=== PATIENT | male | born 1965 | race Caucasian/White ===

== ENCOUNTER 2018-09-25 22:45 | Emergency (ER) | payer BC ==
--- NOTE | 2018-09-25 23:03 | EDM.PDOC ---
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 He is known T2DM, thought maybe his sugar was low, did not check it, instead drank his protein shake. 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 Pain in headache is mild 3/10 dull ache, started gradual, not thunderclap like pain, associated with no neurological deficits. - Related Data Allergies Allergy/AdvReac Type Severity Reaction Status Date / Time amoxicillin trihydrate Allergy Stomach Verified 09/25/18 23:23 [From Augmentin] Upset potassium clavulanate Allergy Stomach Verified 09/25/18 23:23 [From Augmentin] Upset Home Meds: Home Meds Albuterol [Ventolin HFA] 2 puff INH Q4H PRN 01/21/15 [History] Aspirin [Halfprin] 81 mg PO BRK 01/21/15 [History] Multivitamin [Multivitamins] 1 each PO DAILY 01/21/15 [History] Tadalafil [Cialis] 5 mg PO DAILY PRN 01/21/15 [History] amLODIPine [Norvasc] 5 mg PO DAILY 01/21/15 [History] Diclofenac Sodium [Voltaren] 75 mg PO BIDMEALS 02/21/18 [History] Flaxseed Oil [Flaxseed] 1,000 mg PO DAILY 02/21/18 [History] Flecainide Acetate 100 mg PO BID 02/21/18 [History] Fluticasone Propionate [Flovent HFA 110 MCG] 1 puff INH DAILY 02/21/18 [History] [place]-3S/DHA/Epa/Fish Oil [[place]-3 Fish Oil 1,000 mg Sfgl] 1,000 mg PO DAILY 12/31 [History] atorvaSTATin [Lipitor] 40 mg PO DAILY 02/21/18 [History] metFORMIN [Glucophage] 500 mg PO BIDMEALS 02/21/18 [History] miSOPROStol [Cytotec] 100 mcg PO BID 02/21/18 [History] Past Medical History Cardiovascular History: Reports: Angina, High Cholesterol, Hypertension Respiratory History: Reports: Asthma, Sleep Apnea Gastrointestinal History: Reports: None - Infectious Disease History Infectious Disease History: Reports: Chicken Pox, Influenza - Past Surgical History Other Male Surgeries/Procedures: vasectomy Social & Family History - Family History Cardiac: Reports: Angina, High Cholesterol, Hypertension Respiratory: Reports: Asthma GI: Reports: None ED ROS GENERAL - Review of Systems Review Of Systems: See Below Constitutional: Reports: No Symptoms HEENT: Reports: No Symptoms Respiratory: Reports: No Symptoms Cardiovascular: Reports: No Symptoms Endocrine: Reports: No Symptoms GI/Abdominal: Reports: No Symptoms : Reports: No Symptoms Musculoskeletal: Reports: No Symptoms Skin: Reports: No Symptoms Neurological: Reports: Dizziness, Difficulty Walking Psychiatric: Reports: No Symptoms Hematologic/Lymphatic: Reports: No Symptoms ED EXAM, GENERAL - Physical Exam Exam: See Below Exam Limited By: No Limitations General Appearance: Alert, WD/WN, No Apparent Distress Ears: Normal External Exam, Normal Canal, Hearing Grossly Normal, Normal TMs Ear Exam: Bilateral Ear: TM normal Nose: Normal Inspection, Normal Mucosa, No Blood Throat/Mouth: Normal Inspection, Normal Lips, Normal Teeth, Normal Oropharynx, No Airway Compromise Head: Atraumatic, Normocephalic Neck: Normal Inspection, Supple, Non-Tender, Full Range of Motion Respiratory/Chest: No Respiratory Distress, Lungs Clear, Normal Breath Sounds, No Accessory Muscle Use Cardiovascular: Normal Peripheral Pulses, Regular Rate, Rhythm GI/Abdominal: Normal Bowel Sounds, Soft, Other (obese abdomen) Back Exam: Normal Inspection, Full Range of Motion Extremities: Normal Inspection, Normal Range of Motion, Non-Tender, Normal Capillary Refill, Pedal Edema Neurological: Alert, Oriented, CN II-XII Intact, Normal Cognition, Normal Reflexes, No Motor/Sensory Deficits, Abnormal Gait, Other (when he moves his head around, he becomes symptomatic and dizzy.) Skin Exam: Warm, Dry, Intact, Normal Color, Other (at times his face feels flushed, comes and goes.) EKG INTERPRETATION EKG Date: 09/25/18 Rhythm: NSR Rate (Beats/Min): 68 [place]: Normal P-Wave: Present QRS: Normal ST-T: Normal QT: Normal Comparison: NA - No Prior EKG Course - Vital Signs Text/Narrative:: patient presents with peripheral like cause of vertigo, symptoms resolve rapidly at rest, worse with movement, no inner ear dysfunction, recent hearing test yesterday actually, vague mild h/a, new to him frontal region, no neuro deficits, horizontal nystagmus . meclizine given. 1 hr after med given, pt ambulated in halls, gait unsteady, worse with movement , resolves at rest, patient states his dad had a stroke and his symptoms had came on similar as this. Due to the continual h/a, gait disturbance, patient is just unsure of himself, CT scan of head w/o obtained, results came back normal. Patient still having symptoms, only with movement, they resolve when he holds his head still. 2.5 mg Valium ordered IVP slow and diluted to help what it seems to be BPPV. He drank two glasses of water. He has a ride home per son and is off work until Saturday to rest. Valium was repeated, patient improved, he is able to move his head in a certain way to alleviate his symptoms completely, it is always with movement, he has horizontal nystagmus, his symptoms resolve at rest, he is to f/u in clinic today or on saturday. He has the weekend off to rest. Last Recorded V/S: Last Vital Signs Temp 98.7 F 09/25/18 22:50 Pulse 58 L 09/26/18 03:25 Resp 18 09/26/18 03:25 BP 172/78 H 09/26/18 03:25 Pulse Ox 92 L 09/25/18 22:50 Orthostatic Blood Pressure [ 161/85 Standing] Orthostatic Blood Pressure [ 158/76 Sitting] Orthostatic Blood Pressure [ 155/75 Supine] - Orders/Labs/Meds Orders: Active Orders 24 hr Category Date Time Status EKG Documentation Completion [RC] ASDIRECTED Care 09/26/18 00:00 Active POC Glucose [Blood Glucose Check, Bedside] [RC] ONETIME Care 09/26/18 00:00 Active Head wo Cont [CT] Stat Exams 09/26/18 01:09 Taken EKG 12 Lead [EK] Routine Ther 09/26/18 00:00 Ordered Labs: Laboratory Tests 09/25/18 09/25/18 Range/Units 23:10 23:10 WBC 6.51 (5.00-10.00) 10^3/uL RBC 5.17 (4.50-6.00) 10^6/uL Hgb 15.3 (13.0-17.0) g/dL Hct 44.2 (40.0-52.0) % MCV 85.5 (82.0-92.0) fL MCH 29.6 (27.0-31.0) pg MCHC 34.6 (32.0-36.0) g/dL RDW 12.8 (11.5-14.5) % Plt Count 216 (150-400) 10^3/uL MPV 11.8 H (7.4-10.4) fL Immature Gran % (Auto) 0.3 (0.0-5.0) % Neut % (Auto) 68.6 (50.0-70.0) % Lymph % (Auto) 22.1 (20.0-40.0) % [place] % (Auto) 6.8 (2.0-8.0) % Eos % (Auto) 1.7 (1.0-3.0) % Baso % (Auto) 0.5 (0.0-1.0) % Immature Gran # (Auto) 0.02 (0.00-0.50) 10^3/uL Neut # (Auto) 4.47 (2.50-7.00) 10^3/uL Lymph # (Auto) 1.44 (1.00-4.00) 10^3/uL [place] # (Auto) 0.44 (0.10-0.80) 10^3/uL Eos # (Auto) 0.11 (0.10-0.30) 10^3/uL Baso # (Auto) 0.03 (0.00-0.10) 10^3/uL Sodium 144 (136-145) mmol/L Potassium 3.8 (3.3-5.3) mmol/L Chloride 106 (98-115) mmol/L Carbon Dioxide 27.8 (21.0-32.0) mmol/L Anion Gap 14.0 (5-15) mmol/L BUN 20 (6-25) mg/dL Creatinine 0.76 (0.51-1.17) mg/dL Est Cr Clr Drug Dosing 102.68 mL/min Estimated GFR (MDRD) > 60 mL/min Glucose 94 (75 - 99) mg/dL Calcium 8.7 (8.7-10.3) mg/dL Meds: Medications Discontinued Medications Generic Name Dose Route Start Last Admin Trade Name Savita PRN Reason Stop Dose Admin Diazepam Confirm 09/26/18 02:38 09/26/18 03:23 Valium Administered 09/26/18 02:39 Not Given Dose 10 mg .ROUTE .STK-MED ONE Diazepam 2.5 mg 09/26/18 02:45 09/26/18 03:30 Valium IVPUSH 09/26/18 02:46 2.5 mg ONETIME ONE Administration Meclizine HCl 25 mg 09/26/18 00:08 09/26/18 00:10 Antivert PO 09/26/18 00:09 25 mg ONETIME ONE Administration Meclizine HCl Confirm 09/26/18 00:10 09/26/18 00:43 Antivert Administered 09/26/18 00:11 Not Given Dose 25 mg .ROUTE .STK-MED ONE Departure - Departure Time of Disposition: 04:56 Disposition: Home, Self-Care 01 Condition: Good Clinical Impression: Benign paroxysmal positional vertigo Instructions: How to Perform the Jeni Maneuver, Benign Positional Vertigo Forms: ED Department Discharge, ED Summary Discharge Additional Instructions: f/u in [place] [facility] today or saturday. OTC Meclizine 25 mg PO three times a day as needed for symptoms. look up the [place] Half [place] maneuver, it may help your symptoms. - My Orders Last 24 Hours: My Active Orders 09/26/18 00:00 EKG Documentation Completion [RC] ASDIRECTED POC Glucose [Blood Glucose Check, Bedside] [RC] ONETIME EKG 12 Lead [EK] Routine 09/26/18 01:09 Head wo Cont [CT] Stat - Assessment/Plan Last 24 Hours: My Active Orders 09/26/18 00:00 EKG Documentation Completion [RC] ASDIRECTED POC Glucose [Blood Glucose Check, Bedside] [RC] ONETIME EKG 12 Lead [EK] Routine 09/26/18 01:09 Head wo Cont [CT] Stat
[2018-09-26] MEDS ORDERED: Meclizine 25 MG Tab PO ONE (00:08)
[2018-09-26] MEDS ORDERED: Meclizine 25 MG Tab ONE ×2 (00:10→05:49)
[2018-09-26 00:18] LABS: CHLORIDE,CL 106 mmol/L (98-115); SODIUM,NA 144 mmol/L (136-145)
[2018-09-26 03:33] VITALS: BP 172/78
--- NOTE | 2018-09-26 08:17 | CT ---
[id number] CT/CT Head WO IV EXAM: CT Head WO IV CLINICAL DATA: HEADACHE. DISEQUILIBRIUM COMPARISON: CORRELATION IS MADE WITH THE EXAM OF 2012. FINDINGS: There is no mass or mass effect. There is no hemorrhage or hydrocephalus. There are no extra-axial fluid collections. There are no sites of abnormal attenuation. IMPRESSION: NO PLAIN CT EVIDENCE OF ACUTE INTRACRANIAL PROCESS. New Perez MD 09/26/18 0816 Thank you for allowing us to participate in the care of your patient.
== END 2018-09-26 06:00 | disposition home or self-care (01) ==
LOC: KA.ED 22:45
DX: H81.10 Benign paroxysmal vertigo, unspecified ear (principal); I10 Essential (primary) hypertension; E11.9 Type 2 diabetes mellitus without complications; J45.909 Unspecified asthma, uncomplicated; Z79.84 Long term (current) use of oral hypoglycemic drugs; Z88.1 Allergy status to other antibiotic agents; Z79.82 Long term (current) use of aspirin
CPT/HCPCS: 36415; 70450; 80048; 82962; 85025; 93005; 96374; 99285; A9270; J3360

== ENCOUNTER 2018-12-04 05:48 | Emergency (ER) | payer BC ==
--- NOTE | 2018-12-04 06:21 | EDM.PDOC ---
ED HPI GENERAL MEDICAL PROBLEM - General Chief Complaint: General Stated Complaint: Hypertension Time Seen by Provider: 12/04/18 06:00 Source of Information: Reports: Patient History Limitations: Reports: No Limitations - History of Present Illness INITIAL COMMENTS - FREE TEXT/NARRATIVE: 53 YO WM presents to ER complaining of elevated blood pressure which began tonight at work. Pt reports a mild frontal headache which began today which prompted him to take his BP. Pt reports since 09/2018 he has been having more trouble with controlling his blood pressure. He was recently started on Losartan by his PCP but states BP hasn't been below 150's systolically since he began on his new medication. Pt denies any chest pain, no shortness of breath, no nausea/vomiting, no dizziness and no diaphoresis. Pt reports BP as high as 180/110 at work tonight. Pt reports feeling better with minimal headache at this time with BP readings of 160/78. Onset: Today Duration: Chronic Location: Reports: Head. Denies: Chest Quality: Reports: Ache Severity: Mild Improves with: Reports: None Worsens with: Reports: None Associated Symptoms: Reports: Headaches. Denies: Confusion, Chest Pain, Cough, Diaphoresis, Fever/Chills, Nausea/Vomiting, Shortness of Breath, Syncope, Weakness Headache Pain Score (Numeric/FACES): 5 - Related Data Allergies Allergy/AdvReac Type Severity Reaction Status Date / Time amoxicillin trihydrate Allergy Stomach Verified 12/04/18 05:58 [From Augmentin] Upset potassium clavulanate Allergy Stomach Verified 12/04/18 05:58 [From Augmentin] Upset Home Meds: Home Meds Albuterol [Ventolin HFA] 2 puff INH Q4H PRN 01/21/15 [History] Aspirin [Halfprin] 81 mg PO BRK 01/21/15 [History] Multivitamin [Multivitamins] 1 each PO DAILY 01/21/15 [History] Tadalafil [Cialis] 5 mg PO DAILY PRN 01/21/15 [History] amLODIPine [Norvasc] 5 mg PO DAILY 01/21/15 [History] Diclofenac Sodium [Voltaren] 75 mg PO BIDMEALS 02/21/18 [History] Flaxseed Oil [Flaxseed] 1,000 mg PO DAILY 02/21/18 [History] Flecainide Acetate 100 mg PO BID 02/21/18 [History] Fluticasone Propionate [Flovent HFA 110 MCG] 1 puff INH DAILY 02/21/18 [History] [place]-3S/DHA/Epa/Fish Oil [[place]-3 Fish Oil 1,000 mg Sfgl] 1,000 mg PO DAILY 12/31 [History] atorvaSTATin [Lipitor] 40 mg PO DAILY 02/21/18 [History] metFORMIN [Glucophage] 500 mg PO BIDMEALS 02/21/18 [History] miSOPROStol [Cytotec] 100 mcg PO BID 02/21/18 [History] Past Medical History HEENT History: Reports: Other (See Below) Other HEENT History: Chronic tinnitis Cardiovascular History: Reports: Angina, High Cholesterol, Hypertension Respiratory History: Reports: Asthma, Sleep Apnea Gastrointestinal History: Reports: None Neurological History: Reports: Neuropathy, Diabetic, Other (See Below) Other Neuro History: [place]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 Endocrine/Metabolic History: Reports: Diabetes, Type II, Obesity/BMI 30+ - Infectious Disease History Infectious Disease History: Reports: Chicken Pox, Influenza - Past Surgical History Other Male Surgeries/Procedures: vasectomy Social & Family History - Family History Cardiac: Reports: Angina, High Cholesterol, Hypertension Respiratory: Reports: Asthma GI: Reports: None ED ROS GENERAL - Review of Systems Review Of Systems: See Below Constitutional: Reports: No Symptoms HEENT: Reports: No Symptoms Respiratory: Reports: No Symptoms Cardiovascular: Reports: No Symptoms Endocrine: Reports: No Symptoms GI/Abdominal: Reports: No Symptoms : Reports: No Symptoms Musculoskeletal: Reports: No Symptoms Skin: Reports: No Symptoms Neurological: Reports: Headache. Denies: Confusion, Dizziness, Numbness, Paresthesia, Pre-Existing Deficit, Seizure, Syncope, Tingling, Tremors, Trouble Speaking, Difficulty Walking, Weakness, Change in Speech, Gait Disturbance Psychiatric: Reports: No Symptoms Hematologic/Lymphatic: Reports: No Symptoms Immunologic: Reports: No Symptoms ED EXAM, GENERAL - Physical Exam Exam: See Below Exam Limited By: No Limitations General Appearance: Alert, WD/WN, No Apparent Distress Eye Exam: Bilateral Eye: EOMI, PERRL Head: Atraumatic, Normocephalic Neck: Normal Inspection, Supple, Non-Tender, Full Range of Motion Respiratory/Chest: No Respiratory Distress, Lungs Clear, Normal Breath Sounds, No Accessory Muscle Use, Chest Non-Tender Cardiovascular: Normal Peripheral Pulses, Regular Rate, Rhythm, No Edema, No Gallop, No JVD, No Murmur, No Rub GI/Abdominal: Normal Bowel Sounds, Soft, Non-Tender, No Organomegaly, No Distention, No Abnormal Bruit, No Mass Back Exam: Normal Inspection, Full Range of Motion, NT Extremities: Normal Inspection, Normal Range of Motion, Non-Tender, Normal Capillary Refill, No Pedal Edema Neurological: Alert, Oriented, CN II-XII Intact, Normal Cognition, Normal Gait, Normal Reflexes, No Motor/Sensory Deficits Psychiatric: Normal Affect, Normal Mood Skin Exam: Warm, Dry, Intact, Normal Color, No Rash Lymphatic: No Adenopathy EKG INTERPRETATION EKG Date: 12/04/18 Time: 05:57 Rhythm: NSR Rate (Beats/Min): 67 [place]: Normal P-Wave: Present QRS: Normal ST-T: Normal QT: Normal Comparison: No Change (09/25/2018) Course - Vital Signs Last Recorded V/S: Last Vital Signs Temp 36.1 C 12/04/18 06:04 Pulse 74 12/04/18 06:04 Resp 20 12/04/18 06:04 BP 162/84 H 12/04/18 06:08 Pulse Ox 95 12/04/18 06:04 - Orders/Labs/Meds Orders: Active Orders 24 hr Category Date Time Status EKG Documentation Completion [RC] ASDIRECTED Care 12/04/18 06:10 Active Acetaminophen [Tylenol Extra Strength] Med 12/04/18 06:34 Once 1,000 mg PO ONETIME ONE EKG 12 Lead [EK] Routine Ther 12/04/18 05:55 Ordered Medication Orders Acetaminophen (Tylenol Extra Strength) 1,000 mg PO ONETIME ONE Stop: 12/04/18 06:35 Meds: Medications Generic Name Dose Route Start Last Admin Trade Name Freq PRN Reason Stop Dose Admin Acetaminophen 1,000 mg 12/04/18 06:34 Tylenol Extra Strength PO 12/04/18 06:35 ONETIME ONE Departure - Departure Time of Disposition: 06:33 Disposition: Home, Self-Care 01 Condition: Good Clinical Impression: Hypertension screening - Discharge Information Instructions: Hypertension, [id number] Referrals: Margarita Dumont PA-C [Primary Care Provider] - Forms: ED Department Discharge Additional Instructions: 1. discharge home 2. increase Norvasc to 10mg everyday 3. continue current home medications 4. follow up with Margarita Dumont PA-C today for further management and treatment 5. return to ER for worsening symptoms - My Orders Last 24 Hours: My Active Orders 12/04/18 05:55 EKG 12 Lead [EK] Routine 12/04/18 06:10 EKG Documentation Completion [RC] ASDIRECTED 12/04/18 06:34 Acetaminophen [Tylenol Extra Strength] 1,000 mg PO ONETIME ONE - Assessment/Plan Last 24 Hours: My Active Orders 12/04/18 05:55 EKG 12 Lead [EK] Routine 12/04/18 06:10 EKG Documentation Completion [RC] ASDIRECTED 12/04/18 06:34 Acetaminophen [Tylenol Extra Strength] 1,000 mg PO ONETIME ONE Assessment:: 1. uncontrolled hypertension- recommended increasing norvasc to 10mg PO QD and follow up with PCP today for further management 2. mild frontal headache- pt doesn't want anything for pain at this time. Plan: 1. discharge home 2. increase Norvasc to 10mg everyday 3. continue current home medications 4. follow up with Margarita Dumont PA-C today for further management and treatment 5. return to ER for worsening symptoms
[2018-12-04 06:27] VITALS: BP 162/86
[2018-12-04] MEDS ORDERED: Acetaminophen 500 MG Tab PO ONE (06:34)
== END 2018-12-04 06:45 | disposition home or self-care (01) ==
LOC: KA.ED 05:48
DX: I10 Essential (primary) hypertension (principal); E11.40 Type 2 diabetes mellitus with diabetic neuropathy, unspecified; J45.909 Unspecified asthma, uncomplicated; E78.00 Pure hypercholesterolemia, unspecified; E66.9 Obesity, unspecified; Z68.42 Body mass index [BMI] 45.0-49.9, adult; Z88.0 Allergy status to penicillin; Z79.82 Long term (current) use of aspirin; Z79.899 Other long term (current) drug therapy; Z79.84 Long term (current) use of oral hypoglycemic drugs
CPT/HCPCS: 93005; 99283; A9270

== ENCOUNTER 2018-12-04 23:08 | Observation (INO) | payer BC ==
[2018-12-04] MEDS ORDERED: Sodium Chloride 0.9% 10 ML Syringe FLUSH PRN (23:35)
[2018-12-04] MEDS ORDERED: Sodium Chloride 0.9% 1,000 ML IV ONE (23:36)
--- NOTE | 2018-12-04 23:46 | EDM.PDOC ---
ED HPI GENERAL MEDICAL PROBLEM - General Chief Complaint: Neuro Symptoms/Deficits Stated Complaint: High blood pressure, left arm and jaw numbness Time Seen by Provider: 12/04/18 23:10 Source of Information: Reports: Patient History Limitations: Reports: No Limitations - History of Present Illness INITIAL COMMENTS - FREE TEXT/NARRATIVE: 53 YO WM with uncontrolled hypertension presents to ER with near syncope with chest heaviness, left arm numbness and facial numbness which began tonight around 9pm. Pt has been having headaches with elevated blood pressure for the past few days and was seen in clinic today for antihypertensive medication adjustment. Pt was started on HCTZ 12.5mg in addition to his norvasc 5mg and losartan 50mg daily. 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 Pt denies headache at this time. Pt denies chest pain or arm numbness at this time. Duration: Day(s): (3) Location: Reports: Head, Face, Chest, Upper Extremity, Left Quality: Reports: Pressure Severity: Mild Improves with: Reports: None Worsens with: Reports: None Associated Symptoms: Reports: Chest Pain, Diaphoresis. Denies: Confusion, Cough , Loss of Appetite, Malaise, Nausea/Vomiting, Rash, Seizure, Shortness of Breath , Syncope, Weakness - Related Data Allergies Allergy/AdvReac Type Severity Reaction Status Date / Time amoxicillin trihydrate Allergy Stomach Verified 12/05/18 00:12 [From Augmentin] Upset potassium clavulanate Allergy Stomach Verified 12/05/18 00:12 [From Augmentin] Upset Home Meds: Home Meds Albuterol [Ventolin HFA] 2 puff INH Q4H PRN 01/21/15 [History] Aspirin [Halfprin] 81 mg PO BRK 01/21/15 [History] Multivitamin [Multivitamins] 1 each PO DAILY 01/21/15 [History] Tadalafil [Cialis] 5 mg PO DAILY PRN 01/21/15 [History] amLODIPine [Norvasc] 5 mg PO DAILY 01/21/15 [History] Diclofenac Sodium [Voltaren] 75 mg PO BIDMEALS 02/21/18 [History] Flaxseed Oil [Flaxseed] 1,000 mg PO DAILY 02/21/18 [History] Flecainide Acetate 100 mg PO BID 02/21/18 [History] Fluticasone Propionate [Flovent HFA 110 MCG] 1 puff INH DAILY 02/21/18 [History] [place]-3S/DHA/Epa/Fish Oil [[place]-3 Fish Oil 1,000 mg Sfgl] 1,000 mg PO DAILY 12/31 [History] atorvaSTATin [Lipitor] 40 mg PO DAILY 02/21/18 [History] metFORMIN [Glucophage] 500 mg PO BIDMEALS 02/21/18 [History] miSOPROStol [Cytotec] 100 mcg PO BID 02/21/18 [History] hydroCHLOROthiazide [Hydrochlorothiazide] 12.5 mg PO DAILY 12/05/18 [History] Past Medical History HEENT History: Reports: Other (See Below) Other HEENT History: Chronic tinnitis Cardiovascular History: Reports: Angina, High Cholesterol, Hypertension Respiratory History: Reports: Asthma, Sleep Apnea Gastrointestinal History: Reports: None Genitourinary History: Reports: None Musculoskeletal History: Reports: Back Pain, Chronic Neurological History: Reports: Neuropathy, Diabetic, Other (See Below) Other Neuro History: [place]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 Psychiatric History: Reports: None Endocrine/Metabolic History: Reports: Diabetes, Type II, Obesity/BMI 30+ Hematologic History: Reports: None Immunologic History: Reports: None Oncologic (Cancer) History: Reports: None Dermatologic History: Reports: None - Infectious Disease History Infectious Disease History: Reports: Chicken Pox, Influenza - Past Surgical History Other Male Surgeries/Procedures: vasectomy Social & Family History - Family History Family Medical History: Noncontributory Cardiac: Reports: Angina, High Cholesterol, Hypertension Respiratory: Reports: Asthma GI: Reports: None - Caffeine Use Caffeine Use: Reports: Coffee ED ROS GENERAL - Review of Systems Review Of Systems: See Below Constitutional: Reports: No Symptoms HEENT: Reports: No Symptoms Respiratory: Reports: No Symptoms Cardiovascular: Reports: No Symptoms Endocrine: Reports: No Symptoms GI/Abdominal: Reports: No Symptoms : Reports: No Symptoms Musculoskeletal: Reports: No Symptoms Skin: Reports: No Symptoms Neurological: Reports: No Symptoms, Dizziness, Numbness, Tingling. Denies: Confusion, Headache, Paresthesia, Trouble Speaking, Difficulty Walking, Weakness , Change in Speech, Gait Disturbance Psychiatric: Reports: No Symptoms Hematologic/Lymphatic: Reports: No Symptoms Immunologic: Reports: No Symptoms ED EXAM, GENERAL - Physical Exam Exam: See Below Exam Limited By: No Limitations General Appearance: Alert, WD/WN, No Apparent Distress Eye Exam: Bilateral Eye: EOMI, PERRL Nose: Normal Inspection, Normal Mucosa, No Blood Throat/Mouth: Normal Inspection, Normal Lips, Normal Teeth, Normal Gums, Normal Oropharynx, Normal Voice, No Airway Compromise Head: Atraumatic, Normocephalic Neck: Normal Inspection, Supple, Non-Tender, Full Range of Motion Respiratory/Chest: No Respiratory Distress, Lungs Clear, Normal Breath Sounds, No Accessory Muscle Use, Chest Non-Tender Cardiovascular: Normal Peripheral Pulses, Regular Rate, Rhythm, No Edema, No Gallop, No JVD, No Murmur, No Rub GI/Abdominal: Normal Bowel Sounds, Soft, Non-Tender, No Organomegaly, No Distention, No Abnormal Bruit, No Mass Back Exam: Normal Inspection, Full Range of Motion, NT Extremities: Normal Inspection, Normal Range of Motion, Non-Tender, Normal Capillary Refill, No Pedal Edema Neurological: Alert, Oriented, CN II-XII Intact, Normal Cognition, Normal Gait, Normal Reflexes, No Motor/Sensory Deficits Psychiatric: Normal Affect, Normal Mood Skin Exam: Warm, Dry, Intact, Normal Color, No Rash Lymphatic: No Adenopathy EKG INTERPRETATION EKG Date: 12/05/18 Time: 02:41 Rhythm: NSR Rate (Beats/Min): 62 [place]: Normal P-Wave: Present QRS: Normal ST-T: Normal QT: Normal Comparison: No Change (12/04/2018) Course - Vital Signs Last Recorded V/S: Last Vital Signs Temp 37.1 C 12/04/18 23:10 Pulse 78 12/04/18 23:10 Resp 18 12/04/18 23:10 BP 151/75 H 12/04/18 23:10 Pulse Ox 95 12/04/18 23:10 - Orders/Labs/Meds Orders: Active Orders 24 hr Category Date Time Status EKG Documentation Completion [RC] ASDIRECTED Care 12/04/18 23:36 Active Peripheral IV Care [RC] . DIRECTED Care 12/04/18 23:36 Active Chest 2V [CR] Stat Exams 12/04/18 23:35 Taken Head wo Cont [CT] Stat Exams 12/04/18 23:35 Taken Sodium Chloride 0.9% [Saline Flush] Med 12/04/18 23:35 Active 10 ml FLUSH Q8HR PRN Peripheral IV Insertion Adult [OM.PC] Routine Oth 12/04/18 23:35 Ordered EKG 12 Lead [EK] Routine Ther 12/04/18 23:35 Ordered Medication Orders Sodium Chloride (Saline Flush) 10 ml FLUSH Q8HR PRN PRN Reason: keep vein open Labs: Laboratory Tests 12/04/18 12/04/18 Range/Units 23:40 23:40 WBC 8.19 (5.00-10.00) 10^3/uL RBC 4.87 (4.50-6.00) 10^6/uL Hgb 14.5 (13.0-17.0) g/dL Hct 41.1 (40.0-52.0) % MCV 84.4 (82.0-92.0) fL MCH 29.8 (27.0-31.0) pg MCHC 35.3 (32.0-36.0) g/dL RDW 12.8 (11.5-14.5) % Plt Count 224 (150-400) 10^3/uL MPV 11.3 H (7.4-10.4) fL Immature Gran % (Auto) 0.1 (0.0-5.0) % Neut % (Auto) 76.2 H (50.0-70.0) % Lymph % (Auto) 15.4 L (20.0-40.0) % [place] % (Auto) 6.6 (2.0-8.0) % Eos % (Auto) 1.2 (1.0-3.0) % Baso % (Auto) 0.5 (0.0-1.0) % Immature Gran # (Auto) 0.01 (0.00-0.50) 10^3/uL Neut # (Auto) 6.24 (2.50-7.00) 10^3/uL Lymph # (Auto) 1.26 (1.00-4.00) 10^3/uL [place] # (Auto) 0.54 (0.10-0.80) 10^3/uL Eos # (Auto) 0.10 (0.10-0.30) 10^3/uL Baso # (Auto) 0.04 (0.00-0.10) 10^3/uL Sodium 144 (136-145) mmol/L Potassium 3.2 L (3.3-5.3) mmol/L Chloride 103 (98-115) mmol/L Carbon Dioxide 31.9 (21.0-32.0) mmol/L Anion Gap 12.3 (5-15) mmol/L BUN 17 (6-25) mg/dL Creatinine 0.74 (0.51-1.17) mg/dL Est Cr Clr Drug Dosing 105.45 mL/min Estimated GFR (MDRD) > 60 mL/min Glucose 123 H (75 - 99) mg/dL Calcium 8.7 (8.7-10.3) mg/dL Total Bilirubin 0.4 (0.2-1.0) mg/dL AST 25 (15-37) U/L ALT 54 (12-78) U/L Alkaline Phosphatase 93 (46-116) IU/L Creatine Kinase 164 (26-276) U/L CK-MB (CK-2) 1.00 (0.00-4.30) ng/mL Troponin I < 0.04 (0.00-0.070) ng/mL Total Protein 7.3 (6.4-8.2) g/dL Albumin 3.79 (3.00-4.80) g/dL Meds: Medications Generic Name Dose Route Start Last Admin Trade Name Freq PRN Reason Stop Dose Admin Sodium Chloride 10 ml 12/04/18 23:35 Saline Flush FLUSH Q8HR PRN keep vein open Discontinued Medications Generic Name Dose Route Start Last Admin Trade Name Freq PRN Reason Stop Dose Admin Aspirin 243 mg 12/05/18 00:36 Aspirin PO 12/05/18 00:37 ONETIME ONE Sodium Chloride 1,000 mls @ 999 mls/hr 12/04/18 23:36 12/05/18 00:08 Normal Saline IV 12/05/18 00:36 999 mls/hr .BOLUS ONE Administration - Radiology Interpretation Free Text/Narrative:: CXR- NAD CT Head- NAD Departure - Departure Time of Disposition: 00:51 Disposition: Refer to Observation Condition: Fair Clinical Impression: Anginal equivalent, Labile hypertension - Discharge Information Forms: ED Department Discharge - My Orders Last 24 Hours: My Active Orders 12/04/18 23:35 Chest 2V [CR] Stat Head wo Cont [CT] Stat Sodium Chloride 0.9% [Saline Flush] 10 ml FLUSH Q8HR PRN Peripheral IV Insertion Adult [OM.PC] Routine EKG 12 Lead [EK] Routine 12/04/18 23:36 EKG Documentation Completion [RC] ASDIRECTED Peripheral IV Care [RC] . DIRECTED - Assessment/Plan Last 24 Hours: My Active Orders 12/04/18 23:35 Chest 2V [CR] Stat Head wo Cont [CT] Stat Sodium Chloride 0.9% [Saline Flush] 10 ml FLUSH Q8HR PRN Peripheral IV Insertion Adult [OM.PC] Routine EKG 12 Lead [EK] Routine 12/04/18 23:36 EKG Documentation Completion [RC] ASDIRECTED Peripheral IV Care [RC] . DIRECTED Assessment:: 1. labile hypertension 2. anginal equivalent Plan: 1. admit to medicine- Fern Erlandson- OBS 2. monitor 3. trop I Q6 x 3 4. supportive care
[2018-12-05] MEDS ORDERED: Aspirin 81 MG Tab.Chew PO ONE (00:36)
[2018-12-05 00:46] LABS: ANION GAP 12.3 mmol/L (5-15); CHLORIDE,CL 103 mmol/L (98-115); SODIUM,NA 144 mmol/L (136-145)
[2018-12-05] MEDS ORDERED: Acetaminophen 500 MG Tab PO PRN (06:03)
[2018-12-05 06:39] VITALS: BP 147/83
--- NOTE | 2018-12-05 07:40 | CT ---
[id number] CT/CT Head WO IV EXAM: CT Head WO IV CLINICAL DATA: NEAR SYNCOPE COMPARISON: CORRELATION IS MADE WITH THE EXAM OF SEPTEMBER 26, 2018. FINDINGS: There is no mass or mass effect. There is no hemorrhage or hydrocephalus. There are no extra-axial fluid collections. There are no sites of abnormal attenuation. IMPRESSION: NO PLAIN CT EVIDENCE OF ACUTE INTRACRANIAL PROCESS. New Perez MD 12/05/18 0738 Thank you for allowing us to participate in the care of your patient.
--- NOTE | 2018-12-05 08:39 | CR ---
[id number] RAD/RAD Chest PA And Lateral EXAM: RAD Chest PA And Lateral INDICATION: NEAR SYNCOPE COMPARISON: January 2015. DISCUSSION: Cardiomediastinal silhouette is normal in size and contour. No infiltrate, effusion, pneumothorax, or edema. IMPRESSION: Negative examination of the chest. Deonte Mckay MD 12/05/18 0838 Thank you for allowing us to participate in the care of your patient.
--- NOTE | 2018-12-11 09:39 | PCM.HP.2 ---
H&P History of Present Illness - General Date of Service: 12/05/18 Admit Problem/Dx: Admission Diagnosis/Problem Admission Diagnosis/Problem Anginal equivalent Source of Information: Patient, Family, Old Records, RN History Limitations: Reports: No Limitations Headache Pain Score (Numeric/FACES): 6 - Related Data Allergies/Adverse Reactions: Allergies Allergy/AdvReac Type Severity Reaction Status Date / Time amoxicillin trihydrate Allergy Stomach Verified 12/05/18 00:12 [From Augmentin] Upset potassium clavulanate Allergy Stomach Verified 12/05/18 00:12 [From Augmentin] Upset Home Medications: Home Meds Albuterol [Ventolin HFA] 2 puff INH Q4H PRN 01/21/15 [History] Aspirin [Halfprin] 81 mg PO BRK 01/21/15 [History] Multivitamin [Multivitamins] 1 each PO DAILY 01/21/15 [History] Tadalafil [Cialis] 5 mg PO DAILY PRN 01/21/15 [History] Diclofenac Sodium [Voltaren] 75 mg PO BIDMEALS 02/21/18 [History] Flaxseed Oil [Flaxseed] 1,000 mg PO DAILY 02/21/18 [History] Flecainide Acetate 100 mg PO BID 02/21/18 [History] Fluticasone Propionate [Flovent HFA 110 MCG] 1 puff INH DAILY 02/21/18 [History] [place]-3S/DHA/Epa/Fish Oil [[place]-3 Fish Oil 1,000 mg Sfgl] 1,000 mg PO DAILY 12/31 [History] atorvaSTATin [Lipitor] 40 mg PO DAILY 02/21/18 [History] metFORMIN [Glucophage] 500 mg PO BIDMEALS 02/21/18 [History] miSOPROStol [Cytotec] 100 mcg PO BID 02/21/18 [History] hydroCHLOROthiazide [Hydrochlorothiazide] 25 mg PO DAILY #60 tab 12/05/18 [Rx] Past Medical History HEENT History: Reports: Other (See Below) Other HEENT History: Chronic tinnitis Cardiovascular History: Reports: Angina, High Cholesterol, Hypertension Other Cardiovascular History: hx of PVC's, takes Flecainide Respiratory History: Reports: Asthma, Sleep Apnea Gastrointestinal History: Reports: None Genitourinary History: Reports: None Musculoskeletal History: Reports: Back Pain, Chronic Neurological History: Reports: Neuropathy, Diabetic, Other (See Below) Other Neuro History: [place]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 Psychiatric History: Reports: None Endocrine/Metabolic History: Reports: Diabetes, Type II, Obesity/BMI 30+ Hematologic History: Reports: None Immunologic History: Reports: None Oncologic (Cancer) History: Reports: None Dermatologic History: Reports: None - Infectious Disease History Infectious Disease History: Reports: Chicken Pox, Influenza - Past Surgical History Head Surgeries/Procedures: Reports: None Other Male Surgeries/Procedures: vasectomy Social & Family History - Family History Family Medical History: Noncontributory Cardiac: Reports: Angina, High Cholesterol, Hypertension Respiratory: Reports: Asthma GI: Reports: None - Tobacco Use Smoking Status *Q: Former Smoker Used Tobacco, but Quit: Yes Month/Year Tobacco Last Used: 03/1995 - Caffeine Use Caffeine Use: Reports: Coffee H&P Review of Systems - Review of Systems: Review Of Systems: See Below General: Reports: No Symptoms HEENT: Reports: Headaches Pulmonary: Reports: No Symptoms Cardiovascular: Reports: No Symptoms Gastrointestinal: Reports: No Symptoms Genitourinary: Reports: No Symptoms Musculoskeletal: Reports: No Symptoms Skin: Reports: No Symptoms Psychiatric: Reports: No Symptoms Neurological: Reports: No Symptoms Hematologic/Lymphatic: Reports: No Symptoms Immunologic: Reports: No Symptoms Exam - Exam Exam: See Below - Vital Signs Vital Signs: Last Vital Signs Temp 98.5 F 12/05/18 06:38 Pulse 59 L 12/05/18 06:38 Resp 18 12/05/18 06:38 BP 147/83 H 12/05/18 06:38 Pulse Ox 95 12/05/18 07:00 Weight: 292 lb - Exam Quality Assessment: No: Supplemental Oxygen General: Alert, Oriented. No: Mild Distress HEENT: Mucosa Moist & [place] Neck: Supple, Trachea Midline, 2 Lungs: Clear to Auscultation, Normal Respiratory Effort Cardiovascular: Regular Rate, Regular Rhythm GI/Abdominal Exam: Normal Bowel Sounds, Soft, Non-Tender, No Organomegaly, No Distention (Male) Exam: Deferred Rectal (Males) Exam: Deferred Back Exam: No: CVA Tenderness (L), CVA Tenderness (R) Extremities: No Pedal Edema Peripheral Pulses: 2+: Radial (L), Radial (R) Skin: Warm, Dry, Intact Neurological: Cranial Nerves Intact, Reflexes Equal Bilateral Neuro Extensive - Mental Status: Alert, Oriented x3, Normal Mood/Affect, Normal Cognition Neuro Extensive - Motor, Sensory, Reflexes: CN II-XII Intact, Normal Gait, Normal Reflexes Psychiatric: Alert, Normal Affect, Normal Mood - Patient Data Result Diagrams: 12/04/18 23:40 12/04/18 23:40 Problem List Initiated/Reviewed/Updated: Yes Assessment/Plan Comment:: Please use this H&P as a combined discharge summary History of present illness Mr. Higginbotham is a 53 YO GENTLEMAN WHO WAS ADMITTED DUE TO TO CHEST PAIN AND RULE OUT MO. He presented to the ER due to near syncope so along with some chest heaviness which radiated to his face and left arm. He admitted having headaches long with elevated BP the past few days and he had been evaluated in the [facility] that day with blood pressure medication adjustments in which she was started on hydrochlorothiazide 12.5 mg by mouth daily--amlodipine was discontinued. 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 In the ED he had no headache and no longer had chest pains however he was admitted for ongoing serial cardio biomarkers monitoring. Hospital course/findings Uneventful, no concerns on telemetry. EKG, NSR, head CT that was negative and CXR, negative. Labs were unremarkable other than a K level of 3.2. He had no chest pains or shortness of breath. He did have a headache on the morning of discharge. Primary hospital problems Rule out MO, this has been ruled out Hypokalemia, mild Obesity, morbid, comorbid Prediabetes Medication changes/adjustments upon discharge Increase hydrochlorothiazide to 25 mg by mouth daily Discontinue amlodipine Disposition Patient will be discharged to the hospital, lifestyle modifications including improving blood pressure, weight loss, less stress. Likely will need cardiac stress status as patient does have confounding comorbidities/risks with likely underlying insiduis cardiac disease. Follow-up and be worked up as outpatient. Repeat potassium level as outpatient - Mortality Measure Prognosis:: Good
--- NOTE | 2018-12-11 09:46 | PCM.DCSUM1 ---
Discharge Summary - Hospital Course Diagnosis: Stroke: No - Discharge Data Discharge Date: 12/05/18 Discharge Disposition: Home, Self-Care 01 Condition: Good - Patient Instructions Diet: Heart Healthy Diet, Low Sodium, Diabetic Diet Activity: No Strenuous Activities Driving: May Drive Today Showering/Bathing: May Shower Notify Provider of: Fever, Increased Pain Other/Special Instructions: report any worsening headache. Monitor home blood pressure if able - Discharge Plan *PRESCRIPTION DRUG MONITORING PROGRAM REVIEWED*: Not Applicable *COPY OF PRESCRIPTION DRUG MONITORING REPORT IN PATIENT DANIEL: Not Applicable Home Medications: Home Meds Albuterol [Ventolin HFA] 2 puff INH Q4H PRN 01/21/15 [History] Aspirin [Halfprin] 81 mg PO BRK 01/21/15 [History] Multivitamin [Multivitamins] 1 each PO DAILY 01/21/15 [History] Tadalafil [Cialis] 5 mg PO DAILY PRN 01/21/15 [History] Diclofenac Sodium [Voltaren] 75 mg PO BIDMEALS 02/21/18 [History] Flaxseed Oil [Flaxseed] 1,000 mg PO DAILY 02/21/18 [History] Flecainide Acetate 100 mg PO BID 02/21/18 [History] Fluticasone Propionate [Flovent HFA 110 MCG] 1 puff INH DAILY 02/21/18 [History] [place]-3S/DHA/Epa/Fish Oil [[place]-3 Fish Oil 1,000 mg Sfgl] 1,000 mg PO DAILY 12/31 [History] atorvaSTATin [Lipitor] 40 mg PO DAILY 02/21/18 [History] metFORMIN [Glucophage] 500 mg PO BIDMEALS 02/21/18 [History] miSOPROStol [Cytotec] 100 mcg PO BID 02/21/18 [History] hydroCHLOROthiazide [Hydrochlorothiazide] 25 mg PO DAILY #60 tab 12/05/18 [Rx] Forms: Return to Work/Inpatient OON, ED Department Discharge Referrals: Margarita Dumont PA-C [Primary Care Provider] - 12/08/18 (any clinic with Margarita) - Discharge Summary/Plan Comment DC Time >30 min.: Yes Discharge Summary/Plan Comment: Please see H&P as combined discharge summary - Patient Data Vitals - Most Recent: Last Vital Signs Temp 98.5 F 12/05/18 06:38 Pulse 59 L 12/05/18 06:38 Resp 18 12/05/18 06:38 BP 147/83 H 12/05/18 06:38 Pulse Ox 95 12/05/18 07:00 Weight - Most Recent: 292 lb Med Orders - Current: Current Medications Discontinued Medications Acetaminophen (Tylenol Extra Strength) 1,000 mg PO Q6H PRN PRN Reason: Headache Last Admin: 12/05/18 05:44 Dose: 1,000 mg Aspirin (Aspirin) 243 mg PO ONETIME ONE Stop: 12/05/18 00:37 Last Admin: 12/05/18 01:25 Dose: 243 mg Sodium Chloride (Normal Saline) 1,000 mls @ 999 mls/hr IV .BOLUS ONE Stop: 12/05/18 00:36 Last Admin: 12/05/18 00:08 Dose: 999 mls/hr Sodium Chloride (Saline Flush) 10 ml FLUSH Q8HR PRN PRN Reason: keep vein open
== END 2018-12-05 11:29 | disposition home or self-care (01) ==
LOC: KA.ED 23:08 → KA.MS 12-05 00:55
PROVIDERS: ADMIT Physician Assistant Medical; ATTEND Nurse Practitioner Family
DX: R07.89 Other chest pain (principal); R55 Syncope and collapse; R51 Headache; E87.6 Hypokalemia; I10 Essential (primary) hypertension; E11.40 Type 2 diabetes mellitus with diabetic neuropathy, unspecified; E78.00 Pure hypercholesterolemia, unspecified; E66.01 Morbid (severe) obesity due to excess calories; J45.909 Unspecified asthma, uncomplicated; Z88.0 Allergy status to penicillin; Z88.8 Allergy status to other drugs, medicaments and biological substances; Z87.891 Personal history of nicotine dependence; Z79.82 Long term (current) use of aspirin; Z79.51 Long term (current) use of inhaled steroids; Z79.84 Long term (current) use of oral hypoglycemic drugs; Z79.899 Other long term (current) drug therapy; E66.9 Obesity, unspecified
CPT/HCPCS: 36415; 70450; 71046; 80053; 82550; 82553; 84484; 85025; 93005; 96360; 99283-25; 99285-25; A9270-GY; G0378; J7030

== ENCOUNTER 2020-10-10 11:00 | Emergency (ER) | payer BC ==
--- NOTE | 2020-10-10 11:18 | EDM.PDOC ---
ED HPI GENERAL MEDICAL PROBLEM - General Chief Complaint: Chest Pain Stated Complaint: CHEST PRESSURE Time Seen by Provider: 10/10/20 11:04 Source of Information: Reports: Patient History Limitations: Reports: No Limitations - History of Present Illness INITIAL COMMENTS - FREE TEXT/NARRATIVE: Byron, 55-year-old male, arrives by Evelyn and ambulance after continued intermittent chest discomfort for the past 2-1/2 weeks noted on his clinic visit. He is noted today to have a first-degree block in comparison to his EKG 1 year ago. States that he has had intermittent issues with a pressure sensation rating it a 2 or a 3 to the left chest with what he feels weakness. He presented today to the clinic for his monthly work evaluation/clearance. He states that this partially coincides with Victoza cessation that he had previously been taking for his diabetes. He has had no significant increase in blood sugars since that was stopped but does speak of this chest pressure/pain sensation at times. Denies fever chills or any shortness of breath beyond his baseline. No difficulty with bowel or bladder no irritation or pressure noted after eating with no change in acceptable food products. Blood sugars have remained overall stable Onset: Gradual Duration: Week(s): Location: Reports: Chest Quality: Reports: Same as Previous Episode Severity: Moderate Improves with: Reports: None, Rest Worsens with: Reports: Movement Middle Chest Pain Score (Numeric/FACES): 2 - Related Data Allergies Allergy/AdvReac Type Severity Reaction Status Date / Time amoxicillin trihydrate Allergy Stomach Verified 10/10/20 11:36 [From Augmentin] Upset potassium clavulanate Allergy Stomach Verified 10/10/20 11:36 [From Augmentin] Upset walnut Allergy Headache Verified 10/10/20 11:36 Home Meds: Home Meds Albuterol [Ventolin HFA] 2 puff INH Q4H PRN 01/21/15 [History] Aspirin [Halfprin] 81 mg PO BRK 01/21/15 [History] Multivitamin [Multivitamins] 1 each PO DAILY 01/21/15 [History] tadalafiL [Cialis] 5 mg PO DAILY PRN 01/21/15 [History] Diclofenac Sodium [Voltaren] 75 mg PO BIDMEALS 02/21/18 [History] Flaxseed Oil [Flaxseed] 1,000 mg PO DAILY 02/21/18 [History] Flecainide Acetate 100 mg PO BID 02/21/18 [History] Fluticasone Propionate [Flovent HFA 110 MCG] 1 puff INH DAILY 02/21/18 [History] [place]-3S/DHA/Epa/Fish Oil [[place]-3 Fish Oil 1,000 mg Sfgl] 1,000 mg PO DAILY 02/21/18 [History] atorvaSTATin [Lipitor] 40 mg PO DAILY 02/21/18 [History] metFORMIN [Glucophage] 500 mg PO BIDMEALS 02/21/18 [History] miSOPROStoL [Cytotec] 100 mcg PO BID 02/21/18 [History] hydroCHLOROthiazide [Hydrochlorothiazide] 25 mg PO DAILY #60 tab 12/05/18 [Rx] Past Medical History HEENT History: Reports: Other (See Below) Other HEENT History: Chronic tinnitis Cardiovascular History: Reports: Angina, High Cholesterol, Hypertension Other Cardiovascular History: hx of PVC's, takes Flecainide Respiratory History: Reports: Asthma, Sleep Apnea Gastrointestinal History: Reports: None Genitourinary History: Reports: None Musculoskeletal History: Reports: Back Pain, Chronic Neurological History: Reports: Neuropathy, Diabetic, Other (See Below) Other Neuro History: 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 Psychiatric History: Reports: None Endocrine/Metabolic History: Reports: Diabetes, Type II, Obesity/BMI 30+ Hematologic History: Reports: None Immunologic History: Reports: None Oncologic (Cancer) History: Reports: None Dermatologic History: Reports: None - Infectious Disease History Infectious Disease History: Reports: Chicken Pox, Influenza - Past Surgical History Head Surgeries/Procedures: Reports: None Other Male Surgeries/Procedures: vasectomy Social & Family History - Family History Family Medical History: No Pertinent Family History Cardiac: Reports: Angina, High Cholesterol, Hypertension Respiratory: Reports: Asthma GI: Reports: None - Tobacco Use Tobacco Use Status *Q: Former Tobacco User Tobacco Use Within Last Twelve Months: No Used Tobacco, but Quit: Yes - Caffeine Use Caffeine Use: Reports: Coffee - Living Situation & Occupation Living situation: Reports: Occupation: Employed ED ROS GENERAL - Review of Systems Review Of Systems: See Below Constitutional: Reports: No Symptoms HEENT: Reports: No Symptoms Respiratory: Reports: Cough Cardiovascular: Reports: Chest Pain, Dyspnea on Exertion (mild) Endocrine: Reports: Fatigue, High Glucose GI/Abdominal: Reports: No Symptoms : Reports: No Symptoms Musculoskeletal: Reports: No Symptoms Skin: Reports: No Symptoms Neurological: Reports: No Symptoms Psychiatric: Reports: No Symptoms Hematologic/Lymphatic: Reports: No Symptoms Immunologic: Reports: No Symptoms ED EXAM, GENERAL - Physical Exam Exam: See Below Free Text/Narrative:: Alert, oriented, in no acute distress. There is no cyanosis nor pallor noted PERRLA no icterus no injection. [place] moist mucous membranes Neck is soft supple with no lymphadenopathy, no JVD nor bruit is appreciated. Thorax is clear throughout no wheezes nor crackles mildly diminished basis but likely body habitus contributing. Cardiac is S1-S2 I do not appreciate murmur. Abdomen is rotund firm nontender bowel sounds are present. rectal is deferred. +1 edema to the lower extremities with no difficulty to motion nor positioning. Radial pulse correlates with apical heart rate. #1 Interpretation EKG Date: 10/10/20 Time: 11:20 Rhythm: NSR Rate (Beats/Min): 60 P-Wave: Present QRS: Normal ST-T: Other QT: Normal (earlier today [facility]) Comparison: No Change Course - Vital Signs Last Recorded V/S: Last Vital Signs Temp 97.8 F 10/10/20 11:05 Pulse 61 10/10/20 12:30 Resp 19 10/10/20 12:30 BP 163/82 H 10/10/20 12:30 Pulse Ox 97 10/10/20 12:30 - Orders/Labs/Meds Orders: Active Orders 24 hr Category Date Time Status EKG Documentation Completion [RC] ASDIRECTED Care 10/10/20 11:13 Active Peripheral IV Care [RC] . DIRECTED Care 10/10/20 11:52 Active Sodium Chloride 0.9% [Saline Flush] Med 10/10/20 11:52 Active 10 ml FLUSH Q8HR PRN Peripheral IV Insertion Adult [OM.PC] Routine Oth 10/10/20 11:52 Ordered EKG 12 Lead [EK] Urgent Ther 10/10/20 11:13 Ordered Medication Orders Sodium Chloride (Sodium Chloride 0.9% 10 Ml Syringe) 10 ml FLUSH Q8HR PRN PRN Reason: keep vein open Labs: Laboratory Tests 10/10/20 10/10/20 10/10/20 Range/Units 11:20 11:20 11:20 WBC 7.59 (5.00-10.00) 10^3/uL RBC 4.87 (4.50-6.00) 10^6/uL Hgb 14.0 (13.0-17.0) g/dL Hct 42.0 (40.0-52.0) % MCV 86.2 (82.0-92.0) fL MCH 28.7 (27.0-31.0) pg MCHC 33.3 (32.0-36.0) g/dL RDW 13.0 (11.5-14.5) % Plt Count 203 (150-400) 10^3/uL MPV 11.5 H (7.4-10.4) fL Immature Gran % (Auto) 0.1 (0.0-5.0) % Neut % (Auto) 61.9 (50.0-70.0) % Lymph % (Auto) 28.2 (20.0-40.0) % Catron % (Auto) 6.6 (2.0-8.0) % Eos % (Auto) 2.8 (1.0-3.0) % Baso % (Auto) 0.4 (0.0-1.0) % Neut # (Auto) 4.70 (2.50-7.00) 10^3/uL Lymph # (Auto) 2.14 (1.00-4.00) 10^3/uL [place] # (Auto) 0.50 (0.10-0.80) 10^3/uL Eos # (Auto) 0.21 (0.10-0.30) 10^3/uL Baso # (Auto) 0.03 (0.00-0.10) 10^3/uL Immature Gran # (Auto) 0.01 (0.00-0.50) 10^3/uL D-Dimer, Quantitative < 100 (<400) ng/mL Sodium 141 (136-145) mmol/L Potassium 3.6 (3.5-5.1) mmol/L Chloride 102 (98-107) mmol/L Carbon Dioxide 31.9 (21.0-32.0) mmol/L Anion Gap 10.7 (5-15) mmol/L BUN 23 H (7-18) mg/dL Creatinine 1.08 (0.51-1.17) mg/dL Est Cr Clr Drug Dosing 70.55 mL/min Estimated GFR (MDRD) > 60 mL/min Glucose 115 (70-140) mg/dL Calcium 8.8 (8.7-10.3) mg/dL Total Bilirubin 0.2 (0.2-1.0) mg/dL AST 14 L (15-37) U/L ALT 33 (14-63) U/L Alkaline Phosphatase 69 (46-116) U/L Creatine Kinase 99 (26-276) U/L CK-MB (CK-2) 1.30 (0.00-3.60) ng/mL Troponin I High Sens (0-76.000) pg/mL Total Protein 7.0 (6.4-8.2) g/dL Albumin 3.84 (3.40-5.00) g/dL 10/10/20 Range/Units 11:20 WBC (5.00-10.00) 10^3/uL RBC (4.50-6.00) 10^6/uL Hgb (13.0-17.0) g/dL Hct (40.0-52.0) % MCV (82.0-92.0) fL MCH (27.0-31.0) pg MCHC (32.0-36.0) g/dL RDW (11.5-14.5) % Plt Count (150-400) 10^3/uL MPV (7.4-10.4) fL Immature Gran % (Auto) (0.0-5.0) % Neut % (Auto) (50.0-70.0) % Lymph % (Auto) (20.0-40.0) % Catron % (Auto) (2.0-8.0) % Eos % (Auto) (1.0-3.0) % Baso % (Auto) (0.0-1.0) % Neut # (Auto) (2.50-7.00) 10^3/uL Lymph # (Auto) (1.00-4.00) 10^3/uL Catron # (Auto) (0.10-0.80) 10^3/uL Eos # (Auto) (0.10-0.30) 10^3/uL Baso # (Auto) (0.00-0.10) 10^3/uL Immature Gran # (Auto) (0.00-0.50) 10^3/uL D-Dimer, Quantitative (<400) ng/mL Sodium (136-145) mmol/L Potassium (3.5-5.1) mmol/L Chloride (98-107) mmol/L Carbon Dioxide (21.0-32.0) mmol/L Anion Gap (5-15) mmol/L BUN (7-18) mg/dL Creatinine (0.51-1.17) mg/dL Est Cr Clr Drug Dosing mL/min Estimated GFR (MDRD) mL/min Glucose (70-140) mg/dL Calcium (8.7-10.3) mg/dL Total Bilirubin (0.2-1.0) mg/dL AST (15-37) U/L ALT (14-63) U/L Alkaline Phosphatase (46-116) U/L Creatine Kinase (26-276) U/L CK-MB (CK-2) (0.00-3.60) ng/mL Troponin I High Sens 8.500 (0-76.000) pg/mL Total Protein (6.4-8.2) g/dL Albumin (3.40-5.00) g/dL Meds: Medications Generic Name Dose Route Start Last Admin Trade Name Freq PRN Reason Stop Dose Admin Sodium Chloride 10 ml 10/10/20 11:52 Sodium Chloride 0.9% 10 Ml Syringe FLUSH Q8HR PRN keep vein open Departure - Departure Time of Disposition: 12:39 Disposition: Home, Self-Care 01 Condition: Good Clinical Impression: Atypical chest pain, 1st degree AV block - Discharge Information *PRESCRIPTION DRUG MONITORING PROGRAM REVIEWED*: Not Applicable *COPY OF PRESCRIPTION DRUG MONITORING REPORT IN PATIENT DANIEL: Not Applicable Referrals: Margarita Dumont PA-C [Primary Care Provider] - Ruth Higginbotham, MANAGING JEWELER [Nurse Practitioner] - Forms: ED Department Discharge Additional Instructions: Your lab work testing is all in normal range or negative for any severity. Only variation that was noted today was of a change in your EKG, with no ability to confirm when that change actually took place. Speaking with Ruth to give her the update on your status, she would like to see you at 0930 the morning of 19 October at the [facility]. Continue all your medications as directed. Call the clinic if any concerns or return to the emergency department if situation changes/worsens. Sepsis Event Note (ED) - Focused Exam Vital Signs: Vital Signs Temp Pulse Resp BP Pulse Ox 10/10/20 12:30 61 19 163/82 H 97 10/10/20 12:00 56 L 18 140/74 96 10/10/20 11:45 57 L 19 158/87 H 96 10/10/20 11:30 59 L 21 H 180/100 H 96 10/10/20 11:05 97.8 F 64 20 177/73 H 98 - Problem List & Annotations (1) Atypical chest pain SNOMED Code(s): 270023338 Code(s): R07.89 - OTHER CHEST PAIN Status: Acute Current Visit: No (2) 1st degree AV block SNOMED Code(s): 697850585 Code(s): I44.0 - ATRIOVENTRICULAR BLOCK, FIRST DEGREE Status: Acute Priority: Medium Current Visit: Yes - Problem List Review Problem List Initiated/Reviewed/Updated: Yes - My Orders Last 24 Hours: My Active Orders 10/10/20 11:13 EKG Documentation Completion [RC] ASDIRECTED EKG 12 Lead [EK] Urgent 10/10/20 11:52 Peripheral IV Care [RC] . DIRECTED Sodium Chloride 0.9% [Saline Flush] 10 ml FLUSH Q8HR PRN Peripheral IV Insertion Adult [OM.PC] Routine - Assessment/Plan Last 24 Hours: My Active Orders 10/10/20 11:13 EKG Documentation Completion [RC] ASDIRECTED EKG 12 Lead [EK] Urgent 10/10/20 11:52 Peripheral IV Care [RC] . DIRECTED Sodium Chloride 0.9% [Saline Flush] 10 ml FLUSH Q8HR PRN Peripheral IV Insertion Adult [OM.PC] Routine Plan: Your lab work testing is all in normal range or negative for any severity. Only variation that was noted today was of a change in your EKG, with no ability to confirm when that change actually took place. Speaking with Ruth to give her the update on your status, she would like to see you at 0930 the morning of 19 October at the [facility]. Continue all your medications as directed. Call the clinic if any concerns or return to the emergency department if situation changes/worsens.
--- NOTE | 2020-10-10 11:41 | CR ---
[id number] RAD/RAD Chest PA And Lateral EXAM: RAD Chest PA And Lateral INDICATION: CHEST PAIN. COMPARISON: December 02, 2018. DISCUSSION/IMPRESSION: Cardiomediastinal silhouette is normal in size and contour. Lungs are clear. No pleural effusion or pneumothorax. Deonte Mckay MD 10/10/20 5400 Thank you for allowing us to participate in the care of your patient.
[2020-10-10] MEDS ORDERED: Sodium Chloride 0.9% 10 ML Syringe FLUSH PRN (11:52)
[2020-10-10 12:02] LABS: ANION GAP 10.7 mmol/L (5-15); CHLORIDE,CL 102 mmol/L (98-107); SODIUM,NA 141 mmol/L (136-145)
[2020-10-10 12:33] VITALS: BP 163/82; PULSE 61
== END 2020-10-10 12:50 | disposition home or self-care (01) ==
LOC: KA.ED 11:00
DX: I44.0 Atrioventricular block, first degree (principal); E78.00 Pure hypercholesterolemia, unspecified; I10 Essential (primary) hypertension; J45.909 Unspecified asthma, uncomplicated; E11.40 Type 2 diabetes mellitus with diabetic neuropathy, unspecified; E66.9 Obesity, unspecified; Z68.42 Body mass index [BMI] 45.0-49.9, adult; Z87.891 Personal history of nicotine dependence; Z88.0 Allergy status to penicillin; Z88.1 Allergy status to other antibiotic agents; Z91.018 Allergy to other foods; Z79.82 Long term (current) use of aspirin; Z79.84 Long term (current) use of oral hypoglycemic drugs; Z79.899 Other long term (current) drug therapy
CPT/HCPCS: 36415; 71046; 80053; 82550; 82553; 84484; 85025; 85379; 99284; 99285-25

== ENCOUNTER 2022-06-11 21:10 | Emergency (ER) | payer BC ==
[2022-06-11] MEDS: Sodium Chloride 0.9% 10 ML Syringe FLUSH PRN (21:48)
[2022-06-11 22:06] LABS: BARBITURATE SCREEN,URINE NEGATIVE (NEGATIVE); BENZODIAZEPINES SCREEN,URINE NEGATIVE (NEGATIVE)
[2022-06-11 22:07] LABS: TCA SCREEN,URINE NEGATIVE (NEGATIVE); THC SCREEN,URINE 50 NG/ML NEGATIVE (NEGATIVE)
[2022-06-11 22:13] LABS: ANION GAP 10.2 mmol/L (5-15); CHLORIDE,CL 103 mmol/L (98-107); SODIUM,NA 142 mmol/L (136-145)
[2022-06-11 22:14] LABS: ESTIMATED GFR 101 mL/min (>=60)
[2022-06-11] MEDS: Magnesium Oxide 500 MG Tab PO ONE (22:57)
[2022-06-11] MEDS: Potassium Chloride 20 MEQ Tab.ER PO ONE (22:58)
[2022-06-11 23:08] VITALS: BP 155/93; PULSE 56
== END 2022-06-11 23:23 | disposition home or self-care (01) ==
LOC: KA.ED 21:10
DX: R00.2 Palpitations (principal); E87.6 Hypokalemia; E83.42 Hypomagnesemia; E78.00 Pure hypercholesterolemia, unspecified; I10 Essential (primary) hypertension; E11.40 Type 2 diabetes mellitus with diabetic neuropathy, unspecified; E66.9 Obesity, unspecified; Z68.42 Body mass index [BMI] 45.0-49.9, adult; Z88.0 Allergy status to penicillin; Z91.018 Allergy to other foods; Z79.82 Long term (current) use of aspirin; Z79.899 Other long term (current) drug therapy; Z79.84 Long term (current) use of oral hypoglycemic drugs
CPT/HCPCS: 36415; 71046; 80053; 80305-QW; 83735; 84484; 85025; 93010; 99284; 99285; A9270-GY; J3490

== ENCOUNTER 2024-03-23 13:10 | Emergency (ER) | payer BC ==
[2024-03-23 13:51] LABS: BASOPHILS ABSOLUTE AUTO 0.02 10^3/uL (0.00-0.10); BASOPHILS PERCENT AUTO 0.2 % (0.0-1.0); EOSINOPHILS ABSOLUTE AUTO 0.06 10^3/uL (0.10-0.30); EOSINOPHILS PERCENT AUTO 0.6 % (1.0-3.0); HEMATOCRIT 43.1 % (40.0-52.0); HEMOGLOBIN 14.4 g/dL (13.0-17.0); IMMATURE GRAN ABSOLUTE AUTO 0.01 10^3/uL (0.00-0.50); IMMATURE GRAN PERCENT AUTO 0.1 % (0.0-5.0); LYMPHOCYTES ABSOLUTE AUTO 1.51 10^3/uL (1.00-4.00); LYMPHOCYTES PERCENT AUTO 15.9 % (20.0-40.0); MEAN CORPUSCULAR HEMOGLOBIN 28.3 pg (27.0-31.0); MEAN CORPUSCULAR HGB CONC 33.4 g/dL (32.0-36.0); MEAN CORPUSCULAR VOLUME 84.8 fL (82.0-92.0); MEAN PLATELET VOLUME 11.3 fL (7.4-10.4); MONOCYTES ABSOLUTE AUTO 0.59 10^3/uL (0.10-0.80); MONOCYTES PERCENT AUTO 6.2 % (2.0-8.0); NEUTROPHILS ABSOLUTE AUTO 7.28 10^3/uL (2.50-7.00); PLATELET COUNT,PLT 232 10^3/uL (150-400); RED BLOOD CELL COUNT 5.08 10^6/uL (4.50-6.00); RED CELL DISTRIBUTION WIDTH 13.4 % (11.5-14.5); WHITE BLOOD CELL COUNT,WBC 9.47 10^3/uL (5.00-10.00)
[2024-03-23 14:10] LABS: ALBUMIN 4.28 g/dL (3.40-5.00); ANION GAP 11.1 mmol/L (5-15); BILIRUBIN TOTAL 0.6 mg/dL (0.2-1.0); CALCIUM 8.6 mg/dL (8.7-10.3); CARBON DIOXIDE,CO2 31.5 mmol/L (21.0-32.0); CREATININE 0.87 mg/dL (0.51-1.17); EST CRCL DRUG DOSING (CG) 84.42 mL/min; POTASSIUM,K 3.6 mmol/L (3.5-5.1); PROTEIN TOTAL,TP 7.3 g/dL (6.4-8.2)
[2024-03-23 16:18] VITALS: BP 147/83; PULSE 54
== END 2024-03-23 16:35 | disposition home or self-care (01) ==
LOC: KA.ED 13:10
DX: I20.9 Angina pectoris, unspecified (principal); E78.00 Pure hypercholesterolemia, unspecified; E11.9 Type 2 diabetes mellitus without complications; Z79.899 Other long term (current) drug therapy; Z79.84 Long term (current) use of oral hypoglycemic drugs; Z79.82 Long term (current) use of aspirin; Z91.018 Allergy to other foods; Z88.8 Allergy status to other drugs, medicaments and biological substances; Z88.0 Allergy status to penicillin
CPT/HCPCS: 36415; 80053; 84484; 85025; 99285

== ENCOUNTER 2025-02-01 21:19 | Emergency (ER) | payer BC ==
[2025-02-01 22:29] VITALS: BP 157/78; PULSE 62
== END 2025-02-01 22:30 | disposition home or self-care (01) ==
LOC: KA.ED 21:19
DX: I10 Essential (primary) hypertension (principal); E78.00 Pure hypercholesterolemia, unspecified; E11.40 Type 2 diabetes mellitus with diabetic neuropathy, unspecified; E66.9 Obesity, unspecified; J45.909 Unspecified asthma, uncomplicated; Z87.891 Personal history of nicotine dependence; Z79.82 Long term (current) use of aspirin; Z79.899 Other long term (current) drug therapy; Z79.84 Long term (current) use of oral hypoglycemic drugs; Z88.0 Allergy status to penicillin; Z88.8 Allergy status to other drugs, medicaments and biological substances; Z91.018 Allergy to other foods; Z68.41 Body mass index [BMI] 40.0-44.9, adult
CPT/HCPCS: 99283; 99284